=== PATIENT | male | born 1995 | race American Indian/Alaskan Native ===

== ENCOUNTER 2017-07-12 09:33 | Emergency (ER) | payer SELFPAY ==
[2017-07-12] MEDS ORDERED: MOTRIN PO ONE (19:14)
[2017-07-12 19:35] VITALS: BP 123/71
--- NOTE | 2017-07-12 19:49 | Emergency Department Report ---
ED General Adult HPI - General Chief complaint: Pain General Stated complaint: PULLED CHEST Time Seen by Provider: 07/12/17 19:10 Source: patient Mode of arrival: Ambulatory Limitations: No Limitations - History of Present Illness Initial comments: pt is a 22 y/o aam with hx schizo, bipolar, and asthma, who presents for chest wall pain x 2 weeks with movement only pt states he strained lifting boxes at assisted living home pt denies sob no wheezing no dizziness no lightheadedness no n/v no fever no chills. no bruising no swelling no redness Onset/Timin -: week(s) Location: chest (left lateral chest wall mid axillary ) Radiation: non-radiation Severity scale (0 -10): 3 Quality: aching, sharp Consistency: intermittent Improves with: rest Worsens with: movement Associated Symptoms: denies: cough, diaphoresis, fever/chills, headaches, nausea /vomiting, rash, seizure, shortness of breath, syncope, weakness Treatments Prior to Arrival: none - Related Data Previous Rx's Medication Instructions Recorded Last Taken Type ALBUTEROL Inhaler [ProAir HFA 2 puff IH QID PRN #1 inhalation 07/12/17 Unknown Rx Inhaler] Azithromycin [Zithromax Z-BRET] 250 mg PO DAILY #6 tablet 07/12/17 Unknown Rx Benzonatate [Tessalon Perles] 100 mg PO Q8HR #30 capsule 07/12/17 Unknown Rx Ibuprofen 800 mg PO TID PRN #30 tablet 07/12/17 Unknown Rx Allergies Allergy/AdvReac Type Severity Reaction Status Date / Time No Known Allergies Allergy Unverified 07/12/17 10:24 ED Review of Systems ROS: Stated complaint: PULLED CHEST Other details as noted in HPI Constitutional: denies: chills, fever Eyes: denies: eye pain, eye discharge, vision change ENT: denies: ear pain, throat pain Respiratory: denies: cough, shortness of breath, wheezing Cardiovascular: chest pain (left lateral chest wall pain ). denies: palpitations Endocrine: no symptoms reported Gastrointestinal: denies: abdominal pain, nausea, diarrhea Genitourinary: denies: urgency, dysuria Musculoskeletal: denies: back pain, joint swelling, arthralgia Skin: denies: rash, lesions Neurological: denies: headache, weakness, paresthesias Psychiatric: denies: anxiety, depression Hematological/Lymphatic: denies: easy bleeding, easy bruising ED Past Medical Hx - Past Medical History Previous Medical History?: Yes Hx Psychiatric Treatment: Yes (bipolar, Schizophrenia) Hx Asthma: Yes - Surgical History Past Surgical History?: No - Social History Smoking Status: Current Every Day Smoker Substance Use Type: Alcohol - Medications Home Medications: Home Medications Medication Instructions Recorded Confirmed Last Taken Type ALBUTEROL Inhaler [ProAir HFA 2 puff IH QID PRN #1 inhalation 07/12/17 Unknown Rx Inhaler] Azithromycin [Zithromax Z-BRET] 250 mg PO DAILY #6 tablet 07/12/17 Unknown Rx Benzonatate [Tessalon Perles] 100 mg PO Q8HR #30 capsule 07/12/17 Unknown Rx Ibuprofen 800 mg PO TID PRN #30 tablet 07/12/17 Unknown Rx ED Physical Exam - General Limitations: No Limitations General appearance: alert, in no apparent distress - Head Head exam: Present: atraumatic, normocephalic - Eye Eye exam: Present: normal appearance - ENT ENT exam: Present: mucous membranes moist - Neck Neck exam: Present: normal inspection, full ROM. Absent: lymphadenopathy, thyromegaly - Respiratory Respiratory exam: Present: normal lung sounds bilaterally, chest wall tenderness (left lateral chest wall tenderness no stepoff no ecchymosis no swelling no deformity no crepitus pain is reproducible to palpation ). Absent: respiratory distress, wheezes, rales, rhonchi, stridor, accessory muscle use, decreased breath sounds, prolonged expiratory - Cardiovascular Cardiovascular Exam: Present: regular rate, normal rhythm. Absent: systolic murmur, diastolic murmur, rubs, gallop ED Course Vital Signs 07/12/17 07/12/17 07/12/17 10:25 19:18 19:24 Temperature 98.3 F Pulse Rate 68 72 Respiratory 20 16 16 Rate Blood Pressure 125/64 123/71 O2 Sat by Pulse 99 100 Oximetry ED Medical Decision Making - Medical Decision Making pt is a 22 y/o aam with hx schizo, bipolar, and asthma, who presents for chest wall pain x 2 weeks with movement only pt states he strained lifting boxes at assisted living home pt denies sob no wheezing no dizziness no lightheadedness no n/v no fever no chills. no bruising no swelling no redness exam: pt appears well nad, lungs clear bilat no wheezing, cv: S1 and S2 no mrg, cxr: noted pending official read, pt advises that head cannot wait for cxr results, pain is relieved to 0/10 with ibuprofen given in ed plan: refill Abuterol inhaler, zpack, prednisone, ibuprofen, will call if cxr radiology read is abnormal, pt will follow up with primary care Dr. Velarde in 2-3 days pt verbalized agreement and understanding with same. Critical care attestation.: If time is entered above; I have spent that time in minutes in the direct care of this critically ill patient, excluding procedure time. ED Disposition Clinical Impression: Chest wall pain, Bronchitis Disposition: TO HOME OR SELFCARE Is pt being admited?: No Does the pt Need Aspirin: No Condition: Good Instructions: Chest Pain (ED), Chronic Bronchitis (ED) Prescriptions: ALBUTEROL Inhaler [ProAir HFA Inhaler] 2 puff IH QID PRN #1 inhalation PRN Reason: Shortness Of Breath Azithromycin [Zithromax Z-BRET] 250 mg PO DAILY #6 tablet Benzonatate [Tessalon Perles] 100 mg PO Q8HR #30 capsule Ibuprofen 800 mg PO TID PRN #30 tablet PRN Reason: Pain Referrals: PRIMARY CARE, [Primary Care Provider] - 3-5 Days Forms: Work/School Release Form(ED) Time of Disposition: 21:01
--- NOTE | 2017-07-12 21:18 | XRay Report ---
FINAL REPORT PROCEDURE: Chest. TECHNIQUE: PA and lateral views. HISTORY: Cough. COMPARISON: No prior studies are available for comparison. FINDINGS: The heart size is mildly enlarged. Pulmonary vascularity is within normal limits. The lungs are clear and well expanded. There are no pleural effusions. The soft tissues and regional skeleton are unremarkable. IMPRESSION: Mild cardiomegaly.
== END 2017-07-12 21:06 | disposition home or self-care (01) ==
LOC: ED 09:33
DX: J40 Bronchitis, not specified as acute or chronic (principal); F17.200 Nicotine dependence, unspecified, uncomplicated
CPT/HCPCS: 71046; 99283

== ENCOUNTER 2017-12-31 08:54 | Emergency (ER) | payer OTHER ==
[2017-12-31 09:16] VITALS: BP 130/82
[2017-12-31] MEDS ORDERED: LIDOCAINE VISCOUS 2% PO ONE (09:45)
[2017-12-31] MEDS ORDERED: ALUM-MAG HYDROX-SIMETH 200-200-20MG/5ML PO ONE (09:45)
[2017-12-31] MEDS ORDERED: ZOFRAN ODT PO ONE (09:45)
[2017-12-31] MEDS ORDERED: DUONEB *Not for PRN Use IH ONE (10:01)
[2017-12-31] MEDS ORDERED: DECADRON PO ONE (10:02)
--- NOTE | 2017-12-31 10:45 | Emergency Department Report ---
Blank Doc - Documentation Documentation: Patient states for the past month, and Progressively worsening dyspnea and chest tightness. Patient has history of asthma, but has not been using his inhaler. He has a dry cough. Afebrile. Symptoms are worse with exertion. Patient also endorses nausea vomiting after eating. Patient will be given a breathing treatment, DuoNeb, Decadron, and chest x-ray. I gave him a GI cocktail for likely is GERD symptoms. Likely patient will be discharged on reevaluation.
--- NOTE | 2017-12-31 10:50 | Emergency Department Report ---
ED Asthma HPI - General Chief Complaint: Adult Asthma Stated Complaint: DIFFICULTY BREATHING, ASTHMA Time Seen by Provider: 12/31/17 09:44 Source: patient Mode of arrival: Ambulatory Limitations: No Limitations - History of Present Illness Initial Comments: 22-year-old male past medical history asthma, schizophrenia presents with complaint of shortness of breath. Patient denies chest pain. Specifically denies pleuritic chest pain. States he is a smoker. Denies nausea vomiting fever or chills. Awake alert and oriented 3. States that this feels like his asthma, symptoms have been going on intermittently for over one month. States he ran out of his inhaler. Also complains of slight burning sensation in back of throat which occurs intermittently after brief coughing fits. States he does have a history of acid reflux. MD Complaint: "asthma attack", shortness of breath Onset/Timin -: month(s) Asthma History: childhood onset Severity: moderate Context: ran out of meds Treatments Prior to Arrival: inhaled bronchodilator, inhaled steroid - Related Data Current Asthma Therapy: inhaled bronchodilator Previous Rx's Medication Instructions Recorded Last Taken Type ALBUTEROL Inhaler [ProAir HFA 2 puff IH QID PRN #1 inhalation 07/12/17 Unknown Rx Inhaler] Azithromycin [Zithromax Z-BRET] 250 mg PO DAILY #6 tablet 07/12/17 Unknown Rx Benzonatate [Tessalon Perles] 100 mg PO Q8HR #30 capsule 07/12/17 Unknown Rx Ibuprofen 800 mg PO TID PRN #30 tablet 07/12/17 Unknown Rx ALBUTEROL NEB's [Proventil 0.083% 2.5 mg IH TID PRN #1 box 12/31/17 Unknown Rx NEBS] Albuterol Sulfate [Ventolin Hfa] 2 puff IH Q4H PRN #1 hfa.aer.ad 12/31/17 Unknown Rx Famotidine [Pepcid] 20 mg PO BID PRN #30 tablet 12/31/17 Unknown Rx Nebulizer and Compressor [Easy Air 1 each MC Q4H PRN #1 each 12/31/17 Unknown Rx Compressor Nebulizer] predniSONE [Deltasone] 40 mg PO QDAY #10 tab 12/31/17 Unknown Rx Allergies Allergy/AdvReac Type Severity Reaction Status Date / Time No Known Allergies Allergy Unverified 07/12/17 10:24 ED Review of Systems ROS: Stated complaint: DIFFICULTY BREATHING, ASTHMA Other details as noted in HPI Constitutional: denies: chills, fever Eyes: denies: eye pain, eye discharge, vision change ENT: denies: ear pain, throat pain Respiratory: wheezing. denies: cough, shortness of breath Cardiovascular: denies: chest pain, palpitations Endocrine: no symptoms reported Gastrointestinal: denies: abdominal pain, nausea, diarrhea Genitourinary: denies: urgency, dysuria Musculoskeletal: denies: back pain, joint swelling, arthralgia Skin: denies: rash, lesions Neurological: denies: headache, weakness, paresthesias Psychiatric: denies: anxiety, depression Hematological/Lymphatic: denies: easy bleeding, easy bruising ED Past Medical Hx - Past Medical History Hx Psychiatric Treatment: Yes (bipolar, Schizophrenia) Hx Asthma: Yes - Social History Smoking Status: Current Every Day Smoker - Medications Home Medications: Home Medications Medication Instructions Recorded Confirmed Last Taken Type ALBUTEROL Inhaler [ProAir HFA 2 puff IH QID PRN #1 inhalation 07/12/17 Unknown Rx Inhaler] Azithromycin [Zithromax Z-BRET] 250 mg PO DAILY #6 tablet 07/12/17 Unknown Rx Benzonatate [Tessalon Perles] 100 mg PO Q8HR #30 capsule 07/12/17 Unknown Rx Ibuprofen 800 mg PO TID PRN #30 tablet 07/12/17 Unknown Rx ALBUTEROL NEB's [Proventil 0.083% 2.5 mg IH TID PRN #1 box 12/31/17 Unknown Rx NEBS] Albuterol Sulfate [Ventolin Hfa] 2 puff IH Q4H PRN #1 hfa.aer.ad 12/31/17 Unknown Rx Famotidine [Pepcid] 20 mg PO BID PRN #30 tablet 12/31/17 Unknown Rx Nebulizer and Compressor [Easy Air 1 each MC Q4H PRN #1 each 12/31/17 Unknown Rx Compressor Nebulizer] predniSONE [Deltasone] 40 mg PO QDAY #10 tab 12/31/17 Unknown Rx ED Physical Exam - General Limitations: No Limitations General appearance: alert, in no apparent distress - Head Head exam: Present: atraumatic, normocephalic - Eye Eye exam: Present: normal appearance, PERRL, EOMI - ENT ENT exam: Present: mucous membranes moist - Neck Neck exam: Present: normal inspection - Respiratory Respiratory exam: Present: wheezes. Absent: respiratory distress - Cardiovascular Cardiovascular Exam: Present: regular rate, normal rhythm. Absent: systolic murmur, diastolic murmur, rubs, gallop - GI/Abdominal GI/Abdominal exam: Present: soft, normal bowel sounds - Rectal Rectal exam: Present: deferred - Extremities Exam Extremities exam: Present: normal inspection - Back Exam Back exam: Present: normal inspection - Neurological Exam Neurological exam: Present: alert, oriented X3, CN II-XII intact - Psychiatric Psychiatric exam: Present: normal affect (patient has odd affect but is fully lucid and calm), normal mood - Skin Skin exam: Present: warm, dry, intact, normal color. Absent: rash ED Course Vital Signs 12/31/17 12/31/17 12/31/17 09:13 10:06 10:12 Temperature 99.1 F Pulse Rate 112 H Pulse Rate [ 94 H 97 H Bilateral Throughout] Respiratory 20 Rate Respiratory 19 19 Rate [Bilateral Throughout] Blood Pressure 130/82 O2 Sat by Pulse 99 Oximetry ED Medical Decision Making - Medical Decision Making A/P: Asthma exacerbation, reactive airway disease 1- albuterol inhaler, nebulizer 2- short course prednisone 3- normal vital signs, patient does not have any audible wheezing or stridor or retractions before discharge. 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 Brasher before discharge Critical care attestation.: If time is entered above; I have spent that time in minutes in the direct care of this critically ill patient, excluding procedure time. ED Disposition Clinical Impression: Asthma exacerbation Qualifiers: Asthma severity: mild Asthma persistence: intermittent Qualified Code(s): J45.21 - Mild intermittent asthma with (acute) exacerbation GERD (gastroesophageal reflux disease) Qualifiers: Esophagitis presence: esophagitis presence not specified Qualified Code(s): K21.9 - Gastro-esophageal reflux disease without esophagitis Disposition: - TO HOME OR SELFCARE Is pt being admited?: No Does the pt Need Aspirin: No Condition: Stable Instructions: Asthma (ED), Gastroesophageal Reflux Disease (ED) Prescriptions: ALBUTEROL NEB's [Proventil 0.083% NEBS] 2.5 mg IH TID PRN #1 box PRN Reason: Wheezing Albuterol Sulfate [Ventolin Hfa] 2 puff IH Q4H PRN #1 hfa.aer.ad PRN Reason: Wheezing Famotidine [Pepcid] 20 mg PO BID PRN #30 tablet PRN Reason: Indigestion Nebulizer and Compressor [Easy Air Compressor Nebulizer] 1 each MC Q4H PRN #1 each PRN Reason: Wheezing predniSONE [Deltasone] 40 mg PO QDAY #10 tab Referrals: [facility] [Provider Group] - 3-5 Days MCKENZIE MARSH MD [Staff Physician] - 3-5 Days [facility] [Provider Group] - 3-5 Days Forms: Work/School Release Form(ED) Time of Disposition: 11:04
[2017-12-31] MEDS ORDERED: PROVENTIL IH ONE (11:02)
--- NOTE | 2017-12-31 11:02 | XRay Report ---
CHEST TWO VIEWS: 12/31/17 CLINICAL: Chest pain. COMPARISON: 07/12/17 FINDINGS: Stable cardiomegaly. Mild pulmonary venous hypertension. The lungs are slightly underexpanded but clear. No airspace disease or pleural effusion.No tubes or lines. IMPRESSION: Cardiomegaly but no cardiac decompensation.
== END 2017-12-31 11:37 | disposition home or self-care (01) ==
LOC: ED 08:54
DX: J45.21 Mild intermittent asthma with (acute) exacerbation (principal); K21.9 Gastro-esophageal reflux disease without esophagitis; F31.9 Bipolar disorder, unspecified; F20.9 Schizophrenia, unspecified; F17.200 Nicotine dependence, unspecified, uncomplicated
CPT/HCPCS: 71046; 94640; 99283; J8540; Q0162